=== PATIENT | male | born 1980 | race Two or more races ===

== ENCOUNTER 2021-11-05 10:15 | Inpatient (IN) | payer OTHER ==
[~2021-11-05] VITALS: Ht 170.2 cm; Wt 118.4 kg
== END 2021-11-13 11:48 | disposition home or self-care (01) | DRG 330 ==
LOC: SURH 11-09 13:28
PROVIDERS: ADMIT Surgery; ATTEND Surgery
PROC: 0DBP4ZZ Excision of Rectum, Percutaneous Endoscopic Approach (ICD-10-PCS; 2021-11-10)
PROC: 07BB4ZZ Excision of Mesenteric Lymphatic, Percutaneous Endoscopic Approach (ICD-10-PCS; 2021-11-10)
PROC: 0DTN4ZZ Resection of Sigmoid Colon, Percutaneous Endoscopic Approach (ICD-10-PCS; principal; 2021-11-10 10:00)
PROC: 4A12X4Z Monitoring of Cardiac Electrical Activity, External Approach (ICD-10-PCS; 2021-11-12)
DX: D12.4 Benign neoplasm of descending colon (principal); D68.9 Coagulation defect, unspecified; K62.5 Hemorrhage of anus and rectum; R59.0 Localized enlarged lymph nodes; R55 Syncope and collapse; E66.01 Morbid (severe) obesity due to excess calories; Z20.822 Contact with and (suspected) exposure to COVID-19